=== PATIENT | male | born 1955 | race Caucasian/White ===

== ENCOUNTER 2020-08-01 09:26 | Inpatient (IN) | payer OTHER, BC, SELFPAY ==
[2020-08-01] VITALS (10 sets, daily range): BP systolic 98–119; BP diastolic 53–84; PULSE 56–250; RESP 14–18; TEMP 36.6–37.2; O2SAT 87–100; BMI 26.4
--- NOTE | 2020-08-01 | ECG_ITS ---
Test Reason : FAST HEARTBEAT Blood Pressure : / mmHG Vent. Rate : 088 BPM Atrial Rate : 088 BPM P-R Int : 146 ms QRS Dur : 090 ms QT Int : 338 ms P-R-T Axes : 053 031 053 degrees QTc Int : 408 ms Normal sinus rhythm Nonspecific ST abnormality Abnormal ECG compared to EKG of 08/01/20 09:38 Normal sinus rhythm has replaced Wide QRS tachycardia Referred By: Generic ED Physician Electronically Signed By:SUPRIYA LEDESMA MD
--- NOTE | 2020-08-01 | ECG_ITS ---
Test Reason : rapid heart rate Blood Pressure : / mmHG Vent. Rate : 252 BPM Atrial Rate : 234 BPM P-R Int : 000 ms QRS Dur : 182 ms QT Int : 178 ms P-R-T Axes : 000 025 000 degrees QTc Int : 364 ms Wide QRS tachycardia Ventricular tachycardia (ventricular or supraventricular with aberration) Abnormal ECG No previous ECGs available Referred By: Generic ED Physician Electronically Signed By:SUPRIYA LEDESMA MD
--- NOTE | ~2020-08-01 | XR_ITS ---
EXAMINATION: XR CHEST CLINICAL INFORMATION: Palpitations. COMPARISON: Chest 02/02/2010 TECHNIQUE: Frontal view of the chest was obtained. FINDINGS: No significant abnormality is noted involving the heart, lungs, mediastinum, bony thorax or soft tissues. XR/XR chest 1V IMPRESSION: Unremarkable chest examination.
[2020-08-01] MEDS: propofoL 200 MG/20 ML VIAL 50 MG IVPUSH (09:54)
--- NOTE | 2020-08-01 09:57 | ED.ARRPALP ---
HPI - Arrhythmia/Palpitations General Chief Complaint: Arrhythmia/Palpitations Stated Complaint: CHEST PAIN Time Seen by Provider: 08/01/20 09:30 Source: patient Mode of arrival: ambulatory Limitations: no limitations Related Data Allergies Allergy/AdvReac Type Severity Reaction Status Date / Time No Known Allergies Allergy Unverified 10/24/19 15:42 [facility] Past Medical History Medical History (Updated 08/01/20 @ 09:28 by Sulma Ingram) No known health problems Social History Social History Alcohol intake: never Patient Tobacco Use Status: Former Tobacco user Smoked in Last 30 Days: No Use of substances other than those prescribed or required for medical reasons: No Physical Exam Vital Signs: Vital Signs: Last Vital Signs Temp 98.0 F 08/01/20 09:27 Pulse 250 H 08/01/20 09:40 Resp 18 08/01/20 09:27 BP 106/53 L 08/01/20 09:40 Pulse Ox 87 L 08/01/20 09:40 Body Mass Index 26.4
--- NOTE | 2020-08-01 09:58 | ED.ARRPALP ---
HPI - Arrhythmia/Palpitations General Chief Complaint: Arrhythmia/Palpitations Stated Complaint: CHEST PAIN Time Seen by Provider: 08/01/20 09:30 Source: patient and family Mode of arrival: ambulatory Limitations: no limitations History of Present Illness complaint: rapid heart beat, heart racing and palpitations Onset (ago): day(s) (last night remembers when it started) Duration: constant Severity: severe Context: occurred during rest Associated symptoms: shortness of breath, anxiety and other (dizziness) Related Data Allergies Allergy/AdvReac Type Severity Reaction Status Date / Time No Known Allergies Allergy Unverified 10/24/19 15:42 Review of Systems Review of Systems: Constitutional : No Weight loss, No Fever, No Chills ENT/Mouth : No sore throat, No Rhinorrhea Eyes: No Eye Pain, No Swelling Cardiovascular : no Chest Pain, pos SOB, no Dyspnea on Exertion, No Orthopnea, No Edema, pos Palpitations Respiratory : No Cough, No Sputum Gastrointestinal : no Nausea, No Vomiting, No Diarrhea, No abdominal Pain, No Hematochezia, No Melena Genitourinary : No Dysuria, No Urinary Frequency Musculoskeletal : No joint pain, No Myalgias, No Joint Swelling Skin : No Skin Lesions, No rash Neuro : No Weakness, No Numbness, pos Dizziness, No Headache Psych : No Anxiety/Panic, No Depression Heme/Lymph: No Bruising, No Lymphadenopathy Endocrine : No Polyuria, No Polydipsia All other systems reviewed and are negative COUNT INCLUDES THE [facility] Past Medical History Attestation statement: The following information was validated with the patient. Medical History No known health problems Social History Social History Alcohol intake: never Patient Tobacco Use Status: Former Tobacco user Smoked in Last 30 Days: No Use of substances other than those prescribed or required for medical reasons: No Advance Directives: No Advance Directives Information Provided: Yes Physical Exam Vital Signs: Vital Signs: Last Vital Signs Temp 97.8 F 08/01/20 12:20 Pulse 69 08/01/20 12:20 Resp 14 08/01/20 12:20 BP 101/57 L 08/01/20 12:20 Pulse Ox 97 08/01/20 12:20 Body Mass Index 26.4 Appearance: Alert. Oriented X3. Anxious moderate acute distress. Eyes: Pupils equal, round and reactive to light. ENT: Pharynx normal. Neck: Normal inspection. Neck supple. CVS: tachycardic heart rate and rhythm. Pulses decreased, ext cool to the touch Respiratory: No respiratory distress. Breath sounds normal. Abdomen: Soft and nontender. Skin: Skin warm and dry. pale skin color. Normal skin turgor. Extremities: No lower extremity edema. No calf ttp Neuro: Oriented X 3. No motor deficit. No sensory deficit. GCS 15 NIH Stroke Scale Internal: Initial- Upon Arrival Time: 09:59 Level of Consciousness: Alert Level of Consciousness Questions: Answers both questions correctly Level of Consciousness Commands: Performs both tasks correctly Best Gaze: Normal Visual: No visual loss Facial Palsy: Normal Motor Arm (Right): No drift Motor Arm (Left): No drift Motor Leg (Right): No drift Motor Leg (Left): No drift Limb Ataxia: Absent Sensory: Normal Best Language: No aphasia Dysarthia: Normal Extinction and Inattention: No abnormality Score: 0 Course Course Course Narrative: normal stroke assessment post cardioversion given eliquis by Dr. Steele, ECHO ordered Cardiology wants patient admitted overnight, continue eliquis possible multaq will discuss with hospitalist Procedures Procedure Narrative Procedure Narrative: risks and benefits explained - patient needs to be cardioverted for unstable rhythm with onset less than 24 hours ago - cardiology aware, 50mg propofol used, front and back pads applied synchronized and cardioverted x 1 with 120J - NSR afterwards, no complications, no pain patient tolerated well Procedural Sedation Indication: other (cardioversion) ASA Class: I Time of Last PO Intake: 08:00 Preparation: monitoring manager applied, pulse oximeter, capnometry used, supplemental O2 applied, suction/airway equipment at bedside and IV secured IV Propofol dose (mg): 50 Patient Tolerated Procedure: well Complications: none MDM - Arrhythmia/Palpitations MDM Narrative Medical decision making narrative: 64 yo male with no sig PMH has a family hx of strong afib comes in with onset of feeling lightheaded, dyspnea, and elevated HR - on arrival to ED he has HR wide complex 250s unable to get good BP he is mentating well - Cardiology happened to be in ED< will attempt 6mg adenosine to see underlying rhythm which I suspect is aflutter, if that does not work given onset last night and he is a good historian will likely have to cardiovert him for unstable rhythm and unable to obtain BP. Lab Data Result diagrams: 08/01/20 10:02 08/01/20 10:02 Labs: Lab Results 08/01/20 08/01/20 08/01/20 Range/Units 10:02 10:02 10:02 WBC 8.1 (4.8-10.8) X10*3/uL RBC 4.75 (4.60-5.80) X10*6/uL Hgb 14.3 (14.0-18.0) g/dl Hct 42.0 (42-52) % MCV 88.4 (80-98) fL MCH 30.1 (27.0-33.0) pg MCHC 34.0 (31.0-36.0) g/dl RDW 12.7 (11.0-16.0) % Plt Count 173 (160-400) X10*3/uL MPV 9.3 L (9.4-12.4) fL Immature Gran % (Auto) 0.4 (0.0-0.4) % Neut % (Auto) 74.8 H (45-73) % Lymph % (Auto) 15.1 L (20-40) % Hawkins % (Auto) 8.3 (2-11) % Eos % (Auto) 1.2 (0-4) % Baso % (Auto) 0.2 (0-2) % Lymph # (Auto) 1.2 (1.2-4.9) X10*3/uL Hawkins # (Auto) 0.7 (0.1-1.2) X10*3/uL Eos # (Auto) 0.1 (0.0-0.4) X10*3/uL Baso # (Auto) 0.0 (0.0-0.2) X10*3/uL Abs Immat Gran (auto) 0.03 (0.00-0.03) X10*3/uL Absolute Neuts (auto) 6.0 (2.0-8.3) X10*3/uL Absolute Nucleated RBC 0.000 (0.0-0.012) X10*3/uL Nucleated RBC % (auto) 0.0 (0.0-0.2) /100WBC PT 12.5 (10.8-13.0) SEC INR 1.1 (0.9-1.1) APTT 32.5 (24.1-38.0) SEC D-Dimer < 200 NG/ML Sodium 139 (135-145) mmol/L Potassium 4.1 (3.3-5.1) mmol/L Chloride 107 (96-108) mmol/L Carbon Dioxide 26 (22-29) mmol/L Anion Gap 10 L (12-20) BUN 16 (9-16) mg/dL Creatinine 0.91 (0.5-1.4) mg/dL Estim Creat Clear Calc 80.3 Estimated GFR > 60 Random Glucose 134 H (60-115) mg/dL Calcium 9.1 (8.4-10.2) mg/dL Magnesium 2.0 (1.6-2.6) mg/dL Total Bilirubin 0.7 (0.0-1.0) mg/dL Direct Bilirubin 0.3 (0.0-0.5) mg/dL AST 17 (5-37) U/L ALT 16 (0-40) U/L Alkaline Phosphatase 40 (39-117) U/L Troponin I High Sens (<3.5-35.0) ng/L B-Natriuretic Peptide (<100) pg/mL Total Protein 6.2 L (6.5-8.0) g/dL Albumin 3.8 (3.5-5.0) g/dL TSH 3.18 (0.32-4.0) uIU/mL COVID-19 (ASHLI) (Negative) COVID-19 Clin Com 08/01/20 08/01/20 Range/Units 10:02 11:32 WBC (4.8-10.8) X10*3/uL RBC (4.60-5.80) X10*6/uL Hgb (14.0-18.0) g/dl Hct (42-52) % MCV (80-98) fL MCH (27.0-33.0) pg MCHC (31.0-36.0) g/dl RDW (11.0-16.0) % Plt Count (160-400) X10*3/uL MPV (9.4-12.4) fL Immature Gran % (Auto) (0.0-0.4) % Neut % (Auto) (45-73) % Lymph % (Auto) (20-40) % Hawkins % (Auto) (2-11) % Eos % (Auto) (0-4) % Baso % (Auto) (0-2) % Lymph # (Auto) (1.2-4.9) X10*3/uL Hawkins # (Auto) (0.1-1.2) X10*3/uL Eos # (Auto) (0.0-0.4) X10*3/uL Baso # (Auto) (0.0-0.2) X10*3/uL Abs Immat Gran (auto) (0.00-0.03) X10*3/uL Absolute Neuts (auto) (2.0-8.3) X10*3/uL Absolute Nucleated RBC (0.0-0.012) X10*3/uL Nucleated RBC % (auto) (0.0-0.2) /100WBC PT (10.8-13.0) SEC INR (0.9-1.1) APTT (24.1-38.0) SEC D-Dimer NG/ML Sodium (135-145) mmol/L Potassium (3.3-5.1) mmol/L Chloride (96-108) mmol/L Carbon Dioxide (22-29) mmol/L Anion Gap (12-20) BUN (9-16) mg/dL Creatinine (0.5-1.4) mg/dL Estim Creat Clear Calc Estimated GFR Random Glucose (60-115) mg/dL Calcium (8.4-10.2) mg/dL Magnesium (1.6-2.6) mg/dL Total Bilirubin (0.0-1.0) mg/dL Direct Bilirubin (0.0-0.5) mg/dL AST (5-37) U/L ALT (0-40) U/L Alkaline Phosphatase (39-117) U/L Troponin I High Sens 26.9 (<3.5-35.0) ng/L B-Natriuretic Peptide 192 H (<100) pg/mL Total Protein (6.5-8.0) g/dL Albumin (3.5-5.0) g/dL TSH (0.32-4.0) uIU/mL COVID-19 (ASHLI) Negative (Negative) COVID-19 Clin Com See Note ECG Data Attestation: I personally reviewed and interpreted this ECG as follows: ECG interpretation date: 08/01/20 ECG interpretation time: 10:06 Interpretation: Rate: 252 Rhythm: wide complex tachycardia wide complex ST T wave : TIFFANIE seg depression infe/lateral leads prior studies: no prior The study has been interpreted contemporaneously by me. . EKG #2 Rate: 88 Rhythm: NSR Allen: normal Normal P waves. Normal MERARI. Normal QRS complex. ST T wave : normal no TIFFANIE qTC: normal prior studies: no acute ischemia The study has been interpreted contemporaneously by me. . Critical Care Time Critical Care Time Critical Care Time: Yes Total Critical Care Time: 35 Attestation: I attest to this time spent taking care of the patient Discharge Plan Discharge Clinical Impression: Wide-complex tachycardia Patient Disposition: Admitted As Inpatient
[2020-08-01] MEDS: Apixaban 5 MG TABLET PO ×2 (10:05→21:02)
[2020-08-01 10:07] LABS: MANUAL DIFF FLAG NO
[2020-08-01 10:08] LABS: Basophils Percent Auto 0.2 % (0-2); Eosinophils Absolute Auto 0.1 X10*3/uL (0.0-0.4); Eosinophils Percent Auto 1.2 % (0-4); Hemoglobin 14.3 g/dl (14.0-18.0); Imm Gran Abs Auto 0.03 X10*3/uL (0.00-0.03); Imm Gran Pct Auto 0.4 % (0.0-0.4); Lymphocytes Absolute Auto 1.2 X10*3/uL (1.2-4.9); Lymphocytes Percent Auto 15.1 % (20-40); Mean Corpuscular Hemoglobin 30.1 pg (27.0-33.0); Mean Corpuscular Volume 88.4 fL (80-98); Mean Platelet Volume 9.3 fL (9.4-12.4); Monocytes Absolute Auto 0.7 X10*3/uL (0.1-1.2); Monocytes Percent Auto 8.3 % (2-11); Neutrophils Percent Auto 74.8 % (45-73); Platelet Count 173 X10*3/uL (160-400); Red Blood Count 4.75 X10*6/uL (4.60-5.80); Red Cell Distribution Width 12.7 % (11.0-16.0); White Blood Count 8.1 X10*3/uL (4.8-10.8)
--- NOTE | 2020-08-01 10:12 | PC.NURSE ---
pt brought to room 20, appears to be in svt on monitor, hr 240-250 bpm. pt appears symptomatic, sob, difficulty speaking. [id number] difficult to obtain d/t arrythmia, placed on 4l nc, iv access obtained, adenisine 6mg ivp given at approx 0939. no rhythm change. cardiac pads placed, shocked at approx 0941 @ 120j. pt appears to be back in nsr s/p cardioversion. 50mg propofol given ivp prior to shock. ekg completed at bedside. pt slowly becoming more alert, at bedside all questions answered at this time, zygl[employer] inspector at bedside.
--- NOTE | 2020-08-01 10:15 | P.CONCA_ITS ---
History of Present Illness History of Present Illness Date of Service: 08/01/20 Requesting physician: Courtney Gibson Chief complaint: CHEST PAIN, wide complex tachycardia Narrative: 64-year-old gentleman with no significant past medical issues presenting for dizziness and lightheadedness. He is from [place] and flew in yesterday. He said he was dizzy last night and has been feeling fatigued for few days. This morning he felt he is going to pass out and was brought in. He was noticed to be and wide complex tachycardia at 250 beats per minute. He was given adenosine in the ER to see if this is SVT with aberrancy but it did not make any difference. After sedation with propofol he was cardioverted with a single shock to sinus rhythm. Reviewing his EKG appeared he had atrial flutter. He has some chest pressure which happened while he was in the arrhythmia which was relieved afterwards. No bleeding issues in the past. He was given Eliquis in [facility] ER after cardioversion. [facility] Past Medical History Medical History No known health problems Social History Social History Alcohol intake: never Patient Tobacco Use Status: Former Tobacco user Smoked in Last 30 Days: No Use of substances other than those prescribed or required for medical reasons: No Advance Directives: No Advance Directives Information Provided: Yes Meds Allergies Allergy/AdvReac Type Severity Reaction Status Date / Time No Known Allergies Allergy Unverified 10/24/19 15:42 Physical Exam Vital Signs: Vital Signs: Last Vital Signs Temp 98.0 F 08/01/20 09:27 Pulse 80 08/01/20 10:07 Resp 16 08/01/20 10:07 BP 106/65 08/01/20 10:07 Pulse Ox 98 08/01/20 10:07 Body Mass Index 26.4 GENERAL APPEARANCE: in no acute distress, pleasant. NECK: no carotid bruit, no jugular venous distention. SKIN: no suspicious lesions, warm and dry. HEART: no murmurs, regular rate and rhythm. LUNGS: clear to auscultation bilaterally. ABDOMEN: soft, nontender. EXTREMITIES: no edema. PERIPHERAL PULSES: equal. NEUROLOGIC: No gross deficits, AAO X 3 Results Labs and Meds Result diagrams: 08/01/20 10:02 08/01/20 10:02 Lab results: Laboratory Results - last 24 hr 08/01/20 10:02 WBC 8.1 RBC 4.75 Hgb 14.3 Hct 42.0 MCV 88.4 MCH 30.1 MCHC 34.0 RDW 12.7 Plt Count 173 MPV 9.3 L Immature Gran % (Auto) 0.4 Neut % (Auto) 74.8 H Lymph % (Auto) 15.1 L Cassia % (Auto) 8.3 Eos % (Auto) 1.2 Baso % (Auto) 0.2 Lymph # (Auto) 1.2 Cassia # (Auto) 0.7 Eos # (Auto) 0.1 Baso # (Auto) 0.0 Abs Immat Gran (auto) 0.03 Absolute Neuts (auto) 6.0 Absolute Nucleated RBC 0.000 Nucleated RBC % (auto) 0.0 Assessment and Plan (1) Atrial flutter: Status: Acute Pleasant 64-year-old gentleman who is presenting for dizziness and tachycardia with heart rate 250 beats per minute. He was cardioverted in the ER to sinus rhythm. EKG showed atrial flutter. Echocardiography is showing low normal ejection fraction but no significant valvular disease or any other concerns. Clinically not in heart failure. I think we can give him Multaq 400 mg twice a day. He should stay on Eliquis for 8 weeks. He will be returning to [place] soon and will find a financial market dealer there. Thank you for allowing me to participate in the care of your patient. Please feel free to contact me if you have any questions. Procedures Date of Service Date of Service: 08/01/20
[2020-08-01 10:18] LABS: INTERNATIONAL NORM RATIO 1.1 (0.9-1.1); Prothrombin Time 12.5 SEC (10.8-13.0)
[2020-08-01 10:21] LABS: Partial Thromboplastin Time 32.5 SEC (24.1-38.0)
[2020-08-01 10:29] LABS: D Dimer < 200 NG/ML
[2020-08-01 10:55] LABS: Alanine Aminotransferase 16 U/L (0-40); Albumin Level 3.8 g/dL (3.5-5.0); Alkaline Phosphatase 40 U/L (39-117); Anion Gap 10 (12-20); Aspartate Amino Transferase 17 U/L (5-37); Bilirubin Direct 0.3 mg/dL (0.0-0.5); Bilirubin Total 0.7 mg/dL (0.0-1.0); Blood Urea Nitrogen 16 mg/dL (9-16); Calcium 9.1 mg/dL (8.4-10.2); Carbon Dioxide 26 mmol/L (22-29); Chloride 107 mmol/L (96-108); Creatinine Clr Calc Pharmacy 80.3; Estimated Glomerular Filt Rate > 60; Glucose Random 134 mg/dL (60-115); Potassium 4.1 mmol/L (3.3-5.1); Sodium 139 mmol/L (135-145); Total Protein 6.2 g/dL (6.5-8.0)
[2020-08-01 10:58] LABS: B Type Natriuretic Peptide 192 pg/mL (<100); Troponin-I High Sensitivity 26.9 ng/L (<3.5-35.0)
--- NOTE | 2020-08-01 11:00 | CA_ITS ---
Transthoracic Echocardiogram Patient (Last, First, Middle): Jules Peralta P Gender: Male Date of : 1955 Age: 64 Procedure Date: 08/01/2020 Procedure Type: Transthoracic Echocardiogram Location: ER 20 Height: 172.72 cm Weight: 78.93 kg BSA: 1.93 m2 Heart Rate: bpm BP: 119 / 69 mmHg Senior Health Physics Technician: Referring MD: Jluis Steele MD Symptoms: Atrial flutter Study Quality: Fair ECG Rhythm: Sinus Conclusions: - The left ventricular systolic function is low normal. The visually estimated ejection fraction is between 50-55%. - Normal right ventricular cavity size and systolic function. - The left atrium is mildly dilated. - There is mild dilatation of the ascending aorta. Findings Left Ventricle Normal left ventricular cavity size. There is normal left ventricular wall thickness. The left ventricular systolic function is low normal. The visually estimated ejection fraction is between 50-55%. There is no evidence of regional wall motion abnormalities. Diastolic function is normal for age. Right Ventricle Normal right ventricular cavity size and systolic function. Atria The left atrium is mildly dilated. There is no evidence of interatrial shunt by color Doppler. Aortic Valve There is a normal trileaflet aortic valve. There is mild calcification of the aortic valve. There is mild thickening of the aortic valve. There is no aortic valve stenosis. There is trace (trivial) aortic valve regurgitation. Mitral Valve Normal mitral valve structure and function. There is trace mitral valve regurgitation. There is no mitral valve stenosis. Pulmonic Valve Normal pulmonic valve structure and function. There is no pulmonic valve regurgitation. Tricuspid Valve Normal tricuspid valve structure and function. There is trace tricuspid valve regurgitation. Normal right atrial pressure. There is no evidence of pulmonary hypertension. Great Vessels There is mild dilatation of the ascending aorta. The visualized portions of the pulmonary artery and branches are normal. Venous The inferior vena cava is normal in size and collapses greater than 50% with inspiration. Pericardium/Pleural There is no evidence of pericardial effusion. Prior Study Comparison No prior study available for comparison. Measurements 2D Linear Measurements IVSd: 1.02 0.6-0.9/0.6-1.0 cm LVIDd: 4.89 3.9-5.3/4.2-5.9 cm LVIDd Index: 2.53 2.4-3.2/2.2-3.1 cm/m2 LVIDs: 3.76 2.0-3.6 cm LVPWd: 1.11 0.7-1.1 cm Ao Root: 3.60 2.1-3.5 cm LA Diam: 3.60 2.7-3.8/3.0-4.0 cm LAIDs Index: 1.87 1.5-2.3 cm/m2 LV Mass: 238.18 67-162/88-224 g LV Mass Index: 123.41 43-95/49-115 g/m2 LVOT Diam: 2.30 3.0+(-)1.3 cm 2D Systolic Function EF 4C: 48.00 >55% EF 2C: 48.00 >55% Mitral Valve MV Pk E: 0.54 MV PK A: 0.51 MV Decel Time: 209.00 E/A: 1.00 E'Lateral: 11.90 E'Medial: 8.27 E/E' Med: 6.50 E/E' Lat: 4.50 PHT: 61.00 MVA PHT: 3.61 Decel [place]: 2.56 Aortic Valve AoV Pk Dwayne: 1.22 AoV Mn Dwayne: 0.75 AoV VTI: 0.28 AoV Pk Grad: 6.00 Aov Mn Grad: 3.00 RAY Cont.VTI: 2.73 LVOT LVOT Pk Dwyane: 0.80 LVOT Mn Dwayne: 0.49 LVOT VTI: 0.18 LVOT Pk Grad: 3.00 LVOT Mn Grad: 1.00 LVOT Diam: 2.30 LVOT Area: 4.15 Diastolic Function MV Pk E: 0.54 MV Pk A: 0.51 E/A: 1.00 E'Medial: 8.27 E/E' Med: 6.50 E' Laterial: 11.90 E/E' Lat: 4.50 Tricuspid Valve TR Pk Dwayne: 2.09 TR Pk Grad: 17.00 RA Press: 3.00 RVSP: 20.00 Great Vessels Aorta Ao Root-2D: 3.60 2.0-3.7 cm Ao Asc: 3.40 2.1-3.4 cm Pulmonary Valve PV Pk Dwayne: 0.69 Peak PV Grad: 2.00 Updated in Other Vendor System with Status of Final Jluis Steele MD electronically signed on 08/01/2020 3:34:48 PM with status of Final
[2020-08-01 11:16] LABS: TSH reflex Free T4 3.18 uIU/mL (0.32-4.0)
[2020-08-01 11:55] LABS: COVID-19 Test Negative (Negative)
[2020-08-01] MEDS: Dronedarone HCl 400 MG TABLET PO ×2 (13:14→21:02)
--- NOTE | 2020-08-01 13:31 | PC.NURSE ---
echo completed, plan for inpt admission. pt in nad. vss. medicated per emar.
--- NOTE | 2020-08-01 14:01 | P.HPHOSP_ITS ---
History of Present Illness Date of Service: 08/01/20 Chief Complaint: Off balance 64 year old man presenting to the ED with dizziness and feeling off balance this morning. He reported that he got up and felt off . He had some breakfast, took a shower, had water and still felt uneasy. He felt like his heart was pounding and when he walked walked he felt unbalanced. He went to an urgent care and was told that his heart rate was in the 200's. in the ER EKG showed wide complex tachycardia at 200 beats per minute. He was given a dose of adenosine to evaluate for SVT but it did not slow his heart rate down. He was subsequently cardioverted with a single shock and reverted back to sinus rhythm. It appeared that he was in atrial flutter which is new for him. He did report over the last several weeks he has felt more tired, he works a part-time job approximately 4 hours and come home and sleep a lot more. He denied chest pain, shortness of breath, nausea, vomiting, diarrhea, fever, recent illness, sick contacts. He reported that he is in fairly good shape does not take any medications and does not have any known medical problems. Did report that his brother has a history of atrial fibrillation and recently had an ablation. His blood pressure has remained stable. All of his other labs are within acceptable limits. He was given a dose of Eliquis and started on Multaq. Review of Systems Review of Systems: Denies any recent fever chills or decrease in appetite respiratory denies any shortness of breath coverage production cardiovascular see above gastrointestinal denies any dysphagia abdominal pain nausea vomiting or diarrhea genitourinary denies any dysuria frequency or hematuria musculoskeletal denies any joint pain or swelling neuropsych denies any weakness or seizures all other systems reviewed are negative [facility] Medical History No known health problems Family History (Updated 08/01/20 @ 14:27 by Asya Nicole NP) Brother Atrial fibrillation Surgical History (Updated 08/01/20 @ 14:29 by Asya Nicole NP) H/O inguinal hernia repair H/O shoulder surgery Social History (Updated 08/01/20 @ 14:29 by Asya Nicole NP) Household Members: Spouse Alcohol intake: never Patient Tobacco Use Status: Former Tobacco user Smoked in Last 30 Days: No Use of substances other than those prescribed or required for medical reasons: No Advance Directives: No Advance Directives Information Provided: Yes Meds Allergies Allergy/AdvReac Type Severity Reaction Status Date / Time No Known Allergies Allergy Unverified 10/24/19 15:42 Active Medications: Current Medications Generic Name Dose Route Start Last Admin Trade Name Meghna PRN Reason Stop Dose Admin Apixaban 5 mg 08/01/20 21:00 Apixaban 5 Mg Tablet PO BID [facility] Dronedarone 400 mg 08/01/20 12:45 08/01/20 13:14 Dronedarone Hcl 400 Mg Tablet PO 400 mg BID [facility] Administration Sodium Chloride 3 ml 08/01/20 16:00 0.9 % Sodium Chloride Flush 3 Ml Syringe IVFLUSH QSHIFT [facility] Home Medications Medication Instructions Recorded Confirmed Last Taken Type No Known Home Meds 08/01/20 08/01/20 Unknown History Physical Exam Vital Signs and Narrative: Vital Signs: Last Vital Signs Temp 97.8 F 08/01/20 14:00 Pulse 65 08/01/20 14:00 Resp 18 08/01/20 14:00 BP 105/84 08/01/20 14:00 Pulse Ox 97 08/01/20 14:00 Body Mass Index 26.4 Appearing in no acute distress head is normocephalic atraumatic eyes pupils are PERRLA sclera is anicteric mouth throat mucous membranes are intact and moist neck is supple no lymphadenopathy, no JVD noted lung sounds are clear to auscultation heart regular rate rhythm, clear S1, S2 positive bowel sounds, abdomen is soft, nontender neuro patient is alert x3, no focal deficits Results Labs CBC and Chem 7: 08/01/20 10:02 08/01/20 10:02 Labs: Laboratory Results - last 24 hr 08/01/20 08/01/20 08/01/20 10:02 10:02 10:02 MCV 88.4 MCH 30.1 MCHC 34.0 RDW 12.7 Plt Count 173 MPV 9.3 L Immature Gran % (Auto) 0.4 Neut % (Auto) 74.8 H Lymph % (Auto) 15.1 L Hale % (Auto) 8.3 Eos % (Auto) 1.2 Baso % (Auto) 0.2 Lymph # (Auto) 1.2 Hale # (Auto) 0.7 Eos # (Auto) 0.1 Baso # (Auto) 0.0 Abs Immat Gran (auto) 0.03 Absolute Neuts (auto) 6.0 Absolute Nucleated RBC 0.000 Nucleated RBC % (auto) 0.0 PT 12.5 INR 1.1 APTT 32.5 D-Dimer < 200 Anion Gap 10 L Estim Creat Clear Calc 80.3 Estimated GFR > 60 Random Glucose 134 H Calcium 9.1 Magnesium 2.0 Total Bilirubin 0.7 Direct Bilirubin 0.3 AST 17 ALT 16 Alkaline Phosphatase 40 Troponin I High Sens B-Natriuretic Peptide Total Protein 6.2 L Albumin 3.8 TSH 3.18 COVID-19 ([facility]) COVID-19 Clin Com 08/01/20 08/01/20 10:02 11:32 MCV MCH MCHC RDW Plt Count MPV Immature Gran % (Auto) Neut % (Auto) Lymph % (Auto) Hale % (Auto) Eos % (Auto) Baso % (Auto) Lymph # (Auto) Hale # (Auto) Eos # (Auto) Baso # (Auto) Abs Immat Gran (auto) Absolute Neuts (auto) Absolute Nucleated RBC Nucleated RBC % (auto) PT INR APTT D-Dimer Anion Gap Estim Creat Clear Calc Estimated GFR Random Glucose Calcium Magnesium Total Bilirubin Direct Bilirubin AST ALT Alkaline Phosphatase Troponin I High Sens 26.9 B-Natriuretic Peptide 192 H Total Protein Albumin TSH COVID-19 ([facility]) Negative COVID-19 Clin Com See Note Imaging Radiologist's Impressions: Impressions Chest X-Ray 08/01/20 09:48 IMPRESSION: Unremarkable chest examination. Assessment and Plan (1) Hernia: Status: Acute 64 year old man admitted with afib rvr, heart rate up to 250 with wide complex, initially given adenosine to assess for SVT without success. He was sedated and cardioversion was performed and successful and transitioning back to normal sinus rhythm. echocardiogram showed low normal ejection fraction and no significant valvular disease. Atrial fibrillation/flutter with rapid ventricular response status post cardioversion normal TSH, no infection, stable blood pressure - Eliquis for 8 weeks and follow up with Cardiology - Mariam - cardiology following - likely discharge tomorrow to follow up with Cardiology in his home [facility] DVT prophylaxis with [place] Attending: Dr. Thao Full code Quality Stroke Does the patient have a stroke diagnosis?: No VTE Prior VTE?: No VTE Risk Level:: Medical - moderate - high VTE Device Contraindication: Treatment Not Indicated VTE Drug Contraindication: N/A - Med Ordered
--- NOTE | 2020-08-01 16:25 | PC.NURSE ---
PT REASSESSED FOR PAIN, DENIES ANY PAIN AT THIS TIME. PT IN GOOD SPIRITS, AT BEDSIDE. PT APPEARS COMFORTABLE, ALL QUESTIONS ANSWERED AT THIS TIME. AWAITING BED ASSIGNMENT. BEATA.
[2020-08-01] MEDS: Acetaminophen 325 MG TABLET 650 MG PO (20:33)
[2020-08-01] MEDS: 0.9 % Sodium Chloride Flush 3 ML SYRINGE IVFLUSH (21:03)
[2020-08-02 03:08] VITALS: BP 108/62; PULSE 51; RESP 18; TEMP 36.6; O2SAT 96
[2020-08-02 06:07] VITALS: BMI 26.2
[2020-08-02 06:27] LABS: MANUAL DIFF FLAG NO
[2020-08-02 06:45] LABS: Basophils Percent Auto 0.2 % (0-2); Eosinophils Absolute Auto 0.2 X10*3/uL (0.0-0.4); Eosinophils Percent Auto 2.7 % (0-4); Hematocrit 39.3 % (42-52); Hemoglobin 13.4 g/dl (14.0-18.0); Imm Gran Abs Auto 0.02 X10*3/uL (0.00-0.03); Imm Gran Pct Auto 0.3 % (0.0-0.4); Lymphocytes Absolute Auto 1.6 X10*3/uL (1.2-4.9); Lymphocytes Percent Auto 27.2 % (20-40); Mean Corpuscular HGB Conc 34.1 g/dl (31.0-36.0); Mean Corpuscular Hemoglobin 30.5 pg (27.0-33.0); Mean Corpuscular Volume 89.5 fL (80-98); Mean Platelet Volume 9.7 fL (9.4-12.4); Monocytes Absolute Auto 0.5 X10*3/uL (0.1-1.2); Monocytes Percent Auto 8.9 % (2-11); Neutrophils Absolute Auto 3.6 X10*3/uL (2.0-8.3); Neutrophils Percent Auto 60.7 % (45-73); Platelet Count 156 X10*3/uL (160-400); Red Blood Count 4.39 X10*6/uL (4.60-5.80); Red Cell Distribution Width 12.8 % (11.0-16.0)
[2020-08-02 06:58] VITALS: BP 108/64; PULSE 67; RESP 20; TEMP 36.4; O2SAT 97
[2020-08-02 07:04] LABS: Anion Gap 9 (12-20); Blood Urea Nitrogen 16 mg/dL (9-16); Calcium 8.9 mg/dL (8.4-10.2); Carbon Dioxide 28 mmol/L (22-29); Chloride 107 mmol/L (96-108); Creatinine Clr Calc Pharmacy 78.6; Estimated Glomerular Filt Rate > 60; Glucose Random 100 mg/dL (60-115); Sodium 140 mmol/L (135-145)
--- NOTE | 2020-08-02 09:05 | MHC.CM.PN ---
Addendum entered by Avelina Clark 08/02/20 11:29: PT CLEARED FOR DISCHARGE TODAY WITH NO SERVICES. WILL TRANSPORT Addendum entered by Avelina Clark 08/02/20 09:20: DUE TO DIFFERING REGULATIONS AROUND HEALTH CARE AGENT APPOINTMENT IN [place], PT WAS GIVEN HEALTH CARE AGENT POWER OF CDL SERVICE TECHNICIAN FORMS FOUND ON THE [place] CONTRACT CONSULTANT WEBSITE: 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 PT REPORTS [facility] [place] [facility], AND RELOCATED AT THAT TIME. PT IS IN THE AREA FOR A VISIT BUT [place] WHERE HE IS ACTIVE WITH MERED[facility] BELTRAN FOR PRIMARY CARE. PT DOES NOT THINK HE HAS EVER COMPLETED A HCP. PT DECLINES TO COMPLETE ONE TODAY BUT WILL TAKE BLANK COPIES TO DISCUSS WITH HIS AND COMPLETE AT A LATER TIME. CURRENT DC PLAN IS HOME WITH NO SERVICES. PTS WILL TRANSPORT.
[2020-08-02] MEDS: Acetaminophen 325 MG TABLET 650 MG PO (09:25)
[2020-08-02] MEDS: Apixaban 5 MG TABLET PO (09:25)
[2020-08-02] MEDS: Dronedarone HCl 400 MG TABLET PO (09:25)
[2020-08-02] MEDS: 0.9 % Sodium Chloride Flush 3 ML SYRINGE IVFLUSH (09:26)
--- NOTE | 2020-08-02 10:52 | PM.PNCARD ---
Subjective Subjective Date of Service: 08/02/20 Interval history: Feeling better, on multaq and eliquis Physical Exam Vital Signs: Last Vital Signs Temp 97.6 F 08/02/20 06:58 Pulse 67 08/02/20 06:58 Resp 20 08/02/20 06:58 BP 108/64 08/02/20 06:58 Pulse Ox 97 08/02/20 06:58 Body Mass Index 26.2 GENERAL APPEARANCE: in no acute distress, pleasant. NECK: no carotid bruit, no jugular venous distention. SKIN: no suspicious lesions, warm and dry. HEART: no murmurs, regular rate and rhythm. LUNGS: clear to auscultation bilaterally. ABDOMEN: soft, nontender. EXTREMITIES: no edema. PERIPHERAL PULSES: equal. NEUROLOGIC: No gross deficits, AAO X 3 Results Labs and Meds Result diagrams: 08/02/20 05:22 08/02/20 05:22 Lab results: Laboratory Results - last 24 hr 08/01/20 08/01/20 08/01/20 10:02 10:02 11:32 WBC RBC Hgb Hct MCV MCH MCHC RDW Plt Count MPV Immature Gran % (Auto) Neut % (Auto) Lymph % (Auto) Garza % (Auto) Eos % (Auto) Baso % (Auto) Lymph # (Auto) Garza # (Auto) Eos # (Auto) Baso # (Auto) Abs Immat Gran (auto) Absolute Neuts (auto) Absolute Nucleated RBC Nucleated RBC % (auto) Sodium 139 Potassium 4.1 Chloride 107 Carbon Dioxide 26 Anion Gap 10 L BUN 16 Creatinine 0.91 Estim Creat Clear Calc 80.3 Estimated GFR > 60 Random Glucose 134 H Calcium 9.1 Magnesium 2.0 Total Bilirubin 0.7 Direct Bilirubin 0.3 AST 17 ALT 16 Alkaline Phosphatase 40 Troponin I High Sens 26.9 B-Natriuretic Peptide 192 H Total Protein 6.2 L Albumin 3.8 TSH 3.18 COVID-19 ([facility]) Negative COVID-19 Clin Com See Note 08/02/20 08/02/20 05:22 05:22 WBC 6.0 RBC 4.39 L Hgb 13.4 L Hct 39.3 L MCV 89.5 MCH 30.5 MCHC 34.1 RDW 12.8 Plt Count 156 L MPV 9.7 Immature Gran % (Auto) 0.3 Neut % (Auto) 60.7 Lymph % (Auto) 27.2 Garza % (Auto) 8.9 Eos % (Auto) 2.7 Baso % (Auto) 0.2 Lymph # (Auto) 1.6 Garza # (Auto) 0.5 Eos # (Auto) 0.2 Baso # (Auto) 0.0 Abs Immat Gran (auto) 0.02 Absolute Neuts (auto) 3.6 Absolute Nucleated RBC 0.000 Nucleated RBC % (auto) 0.0 Sodium 140 Potassium 4.0 Chloride 107 Carbon Dioxide 28 Anion Gap 9 L BUN 16 Creatinine 0.93 Estim Creat Clear Calc 78.6 Estimated GFR > 60 Random Glucose 100 Calcium 8.9 Magnesium Total Bilirubin Direct Bilirubin AST ALT Alkaline Phosphatase Troponin I High Sens B-Natriuretic Peptide Total Protein Albumin TSH COVID-19 ([facility]) COVID-19 Clin Com Progress Note: A&P Assessment and plan (1) Atrial flutter: Status: Acute Assessment and Plan: 64-year-old gentleman who presented with atrial flutter with heart rate of 250 beats per minute. He was cardioverted in the ER. He has been doing well since then. He has been started on Eliquis 5 mg twice a day I think he should continue this for 8 weeks. started on Multaq 400 mg twice a day to prevent atrial flutter. I have discussion with the family that patient should consider flutter ablation as he returns to [place]. Does not need long-term anticoagulation. Thank you for allowing me to participate in the care of your patient. Please feel free to contact me if you have any questions. Fall Risk Details Current Medications: Current Medications Generic Name Dose Route Start Last Admin Trade Name Freq PRN Reason Stop Dose Admin Acetaminophen 650 mg 08/01/20 14:00 08/02/20 09:25 Acetaminophen 325 Mg Tablet PO 650 mg Q6H PRN Administration Pain, Mild (Pain Scale 1-3) Apixaban 5 mg 08/01/20 21:00 08/02/20 09:25 Apixaban 5 Mg Tablet PO 5 mg BID [facility] Administration Dronedarone 400 mg 08/01/20 12:45 08/02/20 09:25 Dronedarone Hcl 400 Mg Tablet PO 400 mg BID [facility] Administration Ondansetron HCl 4 mg 08/01/20 14:00 Ondansetron Hcl 4 Mg/2 Ml Vial IVPUSH Q8H PRN Nausea and Vomiting Sodium Chloride 3 ml 08/01/20 16:00 08/02/20 09:26 0.9 % Sodium Chloride Flush 3 Ml Syringe IVFLUSH 3 ml QSHIFT [facility]ORY Administration Time Spent With Patient Time: Total time spent is greater than 50% in coordination of care (as documented) at patient's floor/unit and/or counseling patient: Time with patient: 15 - 24 minutes Progress Note: Quality Stroke Does the patient have a stroke diagnosis?: No Procedures Date of Service Date of Service: 08/02/20
[2020-08-02 11:19] VITALS: BP 110/64; PULSE 64; RESP 20; TEMP 36.7; O2SAT 97
--- NOTE | 2020-08-02 16:57 | PM.DS ---
DS: Providers Provider Date of Service: 08/02/20 Date of admission: 08/01/20 14:00 Primary care physician: Unknown Physician Consults: 08/01/20 09:53 Consult to Cardiology Routine Consulting Provider: Courtney Gibson Reason for consultation: narrow complex tachycardia Has provider been notified: Yes 08/01/20 14:00 Consult to Cardiology Routine Consulting Provider: Jluis Steele Reason for consultation: afib rvr Has provider been notified: Yes DS: Diagnosis Discharge Diagnosis (1) Atrial flutter: Status: Acute DS: Medications Discharge Medications Home Medications: Previous Rx's Medication Instructions Recorded apixaban [Eliquis] 5 mg PO BID #120 tab 08/02/20 dronedarone [Multaq] 400 mg PO BID #120 tab 08/02/20 DS: Summary Hospital Course Hospital Course: history of presenting illness Chief Complaint: Off balance 64 year old man presenting to the ED with dizziness and feeling off balance this morning. He reported that he got up and felt off . He had some breakfast, took a shower, had water and still felt uneasy. He felt like his heart was pounding and when he walked walked he felt unbalanced. He went to an urgent care and was told that his heart rate was in the 200's. in the ER EKG showed wide complex tachycardia at 200 beats per minute. He was given a dose of adenosine to evaluate for SVT but it did not slow his heart rate down. He was subsequently cardioverted with a single shock and reverted back to sinus rhythm. It appeared that he was in atrial flutter which is new for him. He did report over the last several weeks he has felt more tired, he works a part-time job approximately 4 hours and come home and sleep a lot more. He denied chest pain, shortness of breath, nausea, vomiting, diarrhea, fever, recent illness, sick contacts. He reported that he is in fairly good shape does not take any medications and does not have any known medical problems. Did report that his brother has a history of atrial fibrillation and recently had an ablation. His blood pressure has remained stable. All of his other labs are within acceptable limits. He was given a dose of Eliquis and started on Multaq. 64-year-old gentleman with no prior history presented to [facility] with dizziness, feeling of balance, chest pounding, in the ER EKG showed wide complex tachycardia, he was given adenosine in the ER to see if it was SVT with aberrancy but it did not make any difference, since it was difficult to obtain blood pressure and due to unstable rhythm it was decided to cardiovert patient in the ER, post cardioversion patient is in normal sinus rythm, patient denies any further symptoms of chest pain, shortness of breath, lightheadedness or dizziness, patient observed in telemetry unit for last 24 hours he remains in normal sinus rhythm,Reviewing his EKG later appeared he had atrial flutter, he has been started on Eliquis 5 mg b.i.d. for 8 weeks and Multaq 400 mg twice a day to prevent atrial flutter, an echocardiogram showed a normal EF 50 55%, left atrium is mildly dilated, there is no evidence of regional wall motion abnormality and diastolic function is normal for age, patient was followed closely by Dr. Steele he recommend atrial flutter ablation. patient is returning back to [place] and has been recommended to follow up with Cardiology and PCP. Time Spent with Patient Time attestation: Total time spent providing and/or coordinating discharge services: Discharge coordination time: Greater than 30 minutes Quality: Stroke Does the patient have a stroke diagnosis?: No Physical Exam Vital Signs: Vital Signs: Last Vital Signs Temp 98.1 F 08/02/20 11:19 Pulse 64 08/02/20 11:19 Resp 20 08/02/20 11:19 BP 110/64 08/02/20 11:19 Pulse Ox 97 08/02/20 11:19 Body Mass Index 26.2 General no acute distress. Neck is supple no JVD. CVS regular rate rhythm, Respiratory lungs clear to auscultation, no respiratory distress, no wheeze, no rhonchi. Gastrointestinal abdomen soft, nontender, bowel sounds audible, no guarding , no rigidity. Extremities no clubbing cyanosis or edema. Neuro nonfocal Skin no rash DS: Data Data Completed and Pending Labs on day of discharge: Laboratory Results - last 24 hr 08/02/20 08/02/20 05:22 05:22 WBC 6.0 RBC 4.39 L Hgb 13.4 L Hct 39.3 L MCV 89.5 MCH 30.5 MCHC 34.1 RDW 12.8 Plt Count 156 L MPV 9.7 Immature Gran % (Auto) 0.3 Neut % (Auto) 60.7 Lymph % (Auto) 27.2 [place] % (Auto) 8.9 Eos % (Auto) 2.7 Baso % (Auto) 0.2 Lymph # (Auto) 1.6 [place] # (Auto) 0.5 Eos # (Auto) 0.2 Baso # (Auto) 0.0 Abs Immat Gran (auto) 0.02 Absolute Neuts (auto) 3.6 Absolute Nucleated RBC 0.000 Nucleated RBC % (auto) 0.0 Sodium 140 Potassium 4.0 Chloride 107 Carbon Dioxide 28 Anion Gap 9 L BUN 16 Creatinine 0.93 Estim Creat Clear Calc 78.6 Estimated GFR > 60 Random Glucose 100 Calcium 8.9 Discharge Plan Discharge Patient Disposition: Home, Self-Care Discharge Diagnosis: atrial flutter with rapid ventricular rate Referrals: Physician,Unknown [Primary Care Provider] - 1 Week Discharge Medications: New Eliquis 5 mg Tablet 5 mg PO BID Qty: 120 RF: 0 Multaq 400 mg Tablet 400 mg PO BID Qty: 120 RF: 0 Discharge Orders: Discharge Order (Routine); Ordered 08/02/20 Ordered By: Tracy Thao Diet: low fat, low cholesterol Activity on Discharge: As tolerated Stand Alone Forms: Patient Portal Discharge page Care Plan Goals: presented with atrial flutter with RVR status post cardioversion, now in normal sinus rhythm continue Eliquis and Multaq and outpatient follow-up with Cardiology Health Concerns: take all medication as prescribed, return to check with any worsening dizziness lightheadedness or palpitation Plan of Treatment: outpatient follow-up with primary care physician and Cardiology Assessment: as above Discharge Date/Time: 08/02/20 13:15
== END 2020-08-02 13:15 | disposition home or self-care (01) | DRG 201 ==
LOC: HO.ED 12:45 → HO.EDOVER 14:10 → HO.IMC 18:16
PROVIDERS: Admitting Provider Nurse Practitioner Acute Care; Emergency Provider Emergency Medicine; Visit Provider Hospitalist
DX: I48.92 Unspecified atrial flutter (principal); Z20.822 Contact with and (suspected) exposure to COVID-19; Z87.891 Personal history of nicotine dependence; Z79.01 Long term (current) use of anticoagulants; Z79.899 Other long term (current) drug therapy
CPT/HCPCS: 36415; 71045; 80048; 80076; 83735; 83880; 84443; 84484; 85025; 85379; 85610; 85730; 87635; 93005; 93306; 99285; J0153